=== PATIENT | female | born 1985 | race Caucasian/White ===

== ENCOUNTER 2016-10-03 11:01 | Emergency (ER) | payer BC ==
[~2016-10-03] VITALS: Ht 160 cm; Wt 68.7 kg
[~2016-10-03 11:01] MED LIST: LEVOIUD INT UTER
[2016-10-03 11:17] VITALS: TEMP 37; Ht 160 cm; Wt 68.7 kg
[2016-10-03] MEDS ORDERED: IBUP-103 PO (12:03)
[2016-10-03 12:17] LABS: BASO % 0.3 %; BASO ABS # 0.02 K/uL (0-0.2); COMPLETE YES; EOS % 1.3 %; HEMATOCRIT 45.1 % (37-47); IG% 0.1 %; LYMPH % 29.4 %; LYMPH ABS # 1.99 K/uL (1.2-3.4); MEAN CELL VOLUME 98.7 fL (80-100); MEAN CORPUSCULAR HEMOGLOBIN 33.7 pg (25-34); MEAN CORPUSCULAR HGB CONC 34.1 g/dl (32-36); MEAN PLATELET VOLUME 10.9 fL (7.4-10.4); MONO % 6.7 %; NEUT % 62.2 %; PLATELET COUNT 188 K/uL (130-400); RED BLOOD COUNT 4.57 M/uL (4.2-5.4); WHITE BLOOD COUNT 6.76 K/uL (4.8-10.8)
--- NOTE | 2016-10-03 12:22 | DIAGNOSTIC IMAGING REPORT ---
SINGLE VIEW CHEST CLINICAL HISTORY: Generalized abdominal pain. FINDINGS: An AP, portable, upright chest radiograph is compared to study dated 07/24/2008. The examination is degraded by portable technique and apical lordotic positioning. The cardiomediastinal silhouette is unremarkable. The lungs and pleural spaces are clear. No pneumothorax is seen. The bony thorax is grossly intact. IMPRESSION: No active disease in the chest. Electronically signed by: Tyson Eugene M.D. 10/03/2016 12:21 PM Dictated Date/Time: 10/03/2016 12:20 PM
[2016-10-03 12:33] LABS: BUN/CREATININE RATIO 19.3 (10-20); CALCIUM 10.8 mg/dl (8.5-10.1); POTASSIUM 4.1 mmol/L (3.5-5.1)
[2016-10-03 12:35] LABS: INR 0.9 (0.9-1.1); PARTIAL THROMBOPLASTIN RATIO 0.9; PROTHROMBIN TIME (PATIENT) 9.4 SECONDS (9.0-12.0)
[2016-10-03 12:36] LABS: CREATININE 0.97 mg/dl (0.60-1.20)
[2016-10-03 13:00] VITALS: BP 132/68; PULSE 87; O2SAT 99
[2016-10-03 13:21] LABS: URINE APPEARANCE CLEAR (CLEAR); URINE BILIRUBIN NEG (NEG); URINE COLOR YELLOW; URINE NITRITE NEG (NEG); URINE PH 7.5 (4.5-7.5); URINE SPECIFIC GRAVITY 1.013 (1.000-1.030); UROBILINOGEN NEG (NEG); ZZUR CULT IF INDIC CLEAN CATCH NO
[2016-10-03 13:24] LABS: MANUAL MICROSCOPIC REQUIRED? NO; REVIEW REQ? NO
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
--- NOTE | 2016-10-04 12:14 | EDITING REQUIRED CODING QUERY ---
CODING QUERY To promote full compliance with coding requirements relating to patient care, provider participation is requested in all cases of technical director uncertainty. Please assist us with the question(s) below: Coding Question(s): Final Impression is not listed on ED Summary. Can you please give the Final Impression? Physician's Response(s): Abd pain, musculoskeletal pain Thank you Isamar Serrano Principal Diagnosis: "_that condition established after study, to be chiefly responsible for occasioning the admission of the patient to the hospital for care." Co-Existing Principal Diagnosis: "_when two or more diagnoses equally meet the criteria for principal diagnosis as determined by the circumstances of admission, diagnostic work up, and/or therapy provided, and the Alphabetic Index, Tabular List, or another coding guideline does not provide sequencing direction, any one of the diagnoses may be sequenced first." "When the physician has documented what appears to be a current diagnosis in the body of the record, but has not included the diagnosis in the final diagnostic statement, the physician should be asked whether the diagnosis should be added." (Source Coding [facility] 2 QTR90. p3-4)
== END 2016-10-03 14:12 | disposition home or self-care (01) ==
LOC: C.EDB 11:04 → C.EDC 14:12
DX: R10.9 Unspecified abdominal pain (principal); M79.1 Myalgia; R19.7 Diarrhea, unspecified; F11.20 Opioid dependence, uncomplicated; Z87.891 Personal history of nicotine dependence; Z82.49 Family history of ischemic heart disease and other diseases of the circulatory system

== ENCOUNTER 2017-04-27 18:53 | Emergency (ER) | payer BC ==
[~2017-04-27] VITALS: Ht 160 cm; Wt 68.8 kg
[~2017-04-27 18:53] MED LIST changes: +IBUP-103 PO
[2017-04-27 19:00] VITALS: BP 143/82; PULSE 56; TEMP 36.6; Ht 160 cm; Wt 68.8 kg
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
[2017-04-27 19:42] VITALS: O2SAT 96
== END 2017-04-27 19:35 | disposition home or self-care (01) ==
LOC: C.EDB 18:53 → C.EDC 19:35
DX: S00.33XA Contusion of nose, initial encounter (principal); Y04.0XXA Assault by unarmed brawl or fight, initial encounter; Y92.89 Other specified places as the place of occurrence of the external cause; Y93.71 Activity, boxing; F11.10 Opioid abuse, uncomplicated; Z82.49 Family history of ischemic heart disease and other diseases of the circulatory system